=== PATIENT | male | born 1970 | race Caucasian/White ===

== ENCOUNTER 2017-10-23 13:04 | Emergency (ER) | payer SELFPAY ==
[~2017-10-23] VITALS: Ht 170.2 cm; Wt 106.0 kg
[~2017-10-23 13:04] MED LIST: IBUP600T26 PO
[2017-10-23 13:07] VITALS: BP 134/74; PULSE 86; RESP 18; TEMP 97.9; O2SAT 96
[2017-10-23] MEDS ORDERED: IBUP-1129 PO (13:57)
[2017-10-23] MEDS ORDERED: PENT400T PO (13:57)
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
[2017-10-23 15:36] VITALS: BP 125/76
== END 2017-10-23 15:44 | disposition home or self-care (01) ==
LOC: PHED 13:04
DX: B07.0 Plantar wart (principal); I73.9 Peripheral vascular disease, unspecified
CPT/HCPCS: 99282

== ENCOUNTER 2018-03-15 13:20 | Emergency (ER) | payer SELFPAY ==
[~2018-03-15] VITALS: Ht 170.2 cm; Wt 100.4 kg
[~2018-03-15 13:20] MED LIST changes: +IBUP-1129 PO; -IBUP600T26 PO; +PENT400T PO
[2018-03-15 13:32] VITALS: BP 117/71; PULSE 89; RESP 16; TEMP 98.5; O2SAT 96
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
== END 2018-03-15 14:54 | disposition home or self-care (01) ==
LOC: PHEFT 13:20
DX: J06.9 Acute upper respiratory infection, unspecified (principal); R05 Cough; R09.81 Nasal congestion; M19.90 Unspecified osteoarthritis, unspecified site; I73.9 Peripheral vascular disease, unspecified
CPT/HCPCS: 99281